=== PATIENT | male | born 1985 | race Caucasian/White ===

== ENCOUNTER 2017-11-23 15:00 | Emergency (ER) | payer OTHER ==
[2017-11-23 15:54] LABS: ADD MAN DIFF? NO
[2017-11-23] MEDS: ONDANSETRON PF 4 MG/2 ML VIAL. IV (15:56)
[2017-11-23] MEDS: IV NORMAL SALINE 1000ML BAG 1,000 ML IV (15:56)
[2017-11-23 15:57] LABS: BASO # 0.1 x10^3/uL (0.0-0.2); BASO % 1 % (0-3); EOS # 0.6 x10^3/uL (0.0-0.7); EOS % 11 % (0-3); HEMATOCRIT 43.6 % (39.0-53.0); HEMOGLOBIN 14.2 g/dL (13.0-17.5); LYMPH # 1.9 x10^3/uL (1.0-4.8); LYMPH % 34 % (24-48); MEAN CORPUSCULAR HEMOGLOBIN 28 pg (25-35); MEAN CORPUSCULAR HGB CONC 33 g/dL (31-37); MEAN CORPUSCULAR VOLUME 85 fL (79-100); MONO # 0.6 x10^3/uL (0.0-1.1); MONO % 12 % (0-9); NEUT # 2.3 x10^3uL (1.8-7.7); NEUT % 42 % (31-73); PLATELET COUNT 251 x10^3/uL (140-400); RED BLOOD COUNT 5.13 x10^6/uL (4.30-5.70); RED CELL DISTRIBUTION WIDTH 14.1 % (11.5-14.5); WHITE BLOOD COUNT 5.5 x10^3/uL (4.0-11.0)
[2017-11-23] MEDS: FAMOTIDINE 20 MG/2 ML VIAL IVP (15:57)
[2017-11-23] MEDS: fentaNYL PF VIAL 100 MCG/2 ML VIAL IV (15:57)
[2017-11-23 16:15] LABS: ANION GAP 11 (6-14); BLOOD UREA NITROGEN 10 mg/dL (8-26); BUN/CREATININE RATIO 9 (6-20); CALCIUM 8.6 mg/dL (8.5-10.1); CARBON DIOXIDE 24 mmol/L (21-32); CHLORIDE 107 mmol/L (98-107); CREATININE 1.1 mg/dL (0.7-1.3); GFR 76.6; GLUCOSE 102 mg/dL (70-99); POTASSIUM 4.1 mmol/L (3.5-5.1); SODIUM 142 mmol/L (136-145)
[2017-11-23 16:21] LABS: ALBUMIN 3.7 g/dL (3.4-5.0); ALBUMIN/GLOBULIN RATIO 1.1 (1.0-1.7); ALK PHOS 59 U/L (46-116); ALT (SGPT) 53 U/L (16-63); AST (SGOT) 23 U/L (15-37); LIPASE 72 U/L (73-393); TOTAL BILIRUBIN 0.3 mg/dL (0.2-1.0); TOTAL PROTEIN 7.1 g/dL (6.4-8.2)
[2017-11-23 16:50] LABS: BILIRUBIN,URINE SMALL (NEG); CLARITY,URINE CLEAR; COLOR,URINE YELLOW; GLUCOSE,URINE NEGATIVE (NEG); NITRITE,URINE NEGATIVE (NEG); PH,URINE 5.5; PROTEIN,URINE NEGATIVE (NEG-TRACE); UROBILINOGEN,URINE 0.2 mg/dL (0.2 mg/dL)
[2017-11-23 16:57] LABS: BACTERIA,URINE FEW /HPF (0-FEW); RBC,URINE 0 /HPF (0-2); SQUAMOUS EPITHELIAL CELL,UR FEW /LPF; WBC,URINE >40 /HPF (0-4)
[2017-11-23 18:07] LABS: INFLUENZA A PATIENT NEGATIVE (NEGATIVE); INFLUENZA B PATIENT NEGATIVE (NEGATIVE); OBC FLU VALID
== END 2017-11-23 18:31 | disposition home or self-care (01) ==
LOC: ER 15:00
DX: R10.11 Right upper quadrant pain (principal); R10.13 Epigastric pain
CPT/HCPCS: 36415; 71045; 76705; 80053; 81001; 83690; 85025; 87086; 87804; 87804-59; 93005; 96361; 96374; 96375; 99285-25; J2405; J3010; J7030; S0028

== ENCOUNTER 2022-03-16 09:15 | Emergency (ER) | payer OTHER ==
[~2022-03-16] VITALS: Ht 188 cm; Wt 89.5 kg
[2022-03-16 09:18] VITALS: BP 160/97
[2022-03-16] MEDS ORDERED: ONDANSETRON ODT 4 MG TAB.RAPDIS. PO ONE (09:30)
[2022-03-16] MEDS ORDERED: IBUP-1007 PO (09:31)
[2022-03-16] MEDS ORDERED: ONDA4TAB12 PO (09:31)
[2022-03-16] MEDS ORDERED: CLIN-94 PO (09:31)
--- NOTE | 2022-03-16 09:31 | PHYS DOC ---
Past Medical History Past Medical History: Bipolar, Other Additional Past Medical Histor: Manic, ADHD Past Surgical History: No Surgical History Smoking Status: Never Smoker Alcohol Use: Rarely Drug Use: Marijuana General Adult EDM: Chief Complaint: DENTAL PROBLEM HPI: HPI: Patient is a 36-year-old male who presents today via [facility] with dental pain. Patient states that he has had ongoing pain on his upper molar on the right side for approximately 1 month, he states that he has an appointment at the end of March with a dental clinic to have this tooth taken care of, but he said over the last 2 days his pain is become unbearable and he vomited once this morning. Patient states that he took acetaminophen for his pain this morning and that did not help. Patient denies fever or chills, shortness of breath, or chest pain. Review of Systems: Review of Systems: Constitutional: Denies fever or chills. [] Eyes: Denies change in visual acuity. [] HENT: Dental pain Respiratory: Denies cough or shortness of breath. [] Cardiovascular: Denies chest pain or edema. [] GI: Denies abdominal pain, nausea, vomiting, bloody stools or diarrhea. [] : Denies dysuria. [] Musculoskeletal: Denies back pain or joint pain. [] Integument: Denies rash. [] Neurologic: Denies headache, focal weakness or sensory changes. [] Endocrine: Denies polyuria or polydipsia. [] Lymphatic: Denies swollen glands. [] Psychiatric: Denies depression or anxiety. [] Heart Score: C/O Chest Pain: No Risk Factors: Risk Factors: DM, Current or recent (<one month) smoker, HTN, HLP, family history of CAD, obesity. Risk Scores: Score 0 - 3: 2.5% MACE over next 6 weeks - Discharge Home Score 4 - 6: 20.3% MACE over next 6 weeks - Admit for Clinical Observation Score 7 - 10: 72.7% MACE over next 6 weeks - Early Invasive Strategies Allergies: Allergies: Allergies Coded Allergies Type Severity Reaction Last Updated Verified No Known Drug Allergies 03/04/16 No Physical Exam: PE: Constitutional: Well developed, well nourished, no acute distress, non-toxic appearance. [] HENT: Right upper jaw back 2 molars have multiple caries noted in him, no swelling no drainage noted, area is reddened, back molar is chipped as is the molar in front of that 1. Eyes: PERRLA, EOMI, conjunctiva normal, no discharge. [] Neck: Normal range of motion, no tenderness, supple, no stridor. [] Cardiovascular:Heart rate regular rhythm, no murmur [] Lungs & Thorax: Bilateral breath sounds clear to auscultation [] Abdomen: Bowel sounds normal, soft, no tenderness, no masses, no pulsatile masses. [] Skin: Warm, dry, no erythema, no rash. [] Back: No tenderness, no CVA tenderness. [] Extremities: No tenderness, no cyanosis, no clubbing, ROM intact, no edema. [] Neurologic: Alert and oriented X 3, normal motor function, normal sensory function, no focal deficits noted. [] Psychologic: Affect normal, judgement normal, mood normal. [] Current Patient Data: Vital Signs: Vital Signs Date Time Temp Pulse Resp B/P (MAP) Pulse Ox O2 Delivery O2 Flow Rate FiO2 03/16/22 09:18 97.7 66 16 160/97 (118) 98 Room Air 97.7 EKG: EKG: [] Radiology/Procedures: Radiology/Procedures: [] Course & Med Decision Making: Course & Med Decision Making Pertinent Labs and Imaging studies reviewed. (See chart for details) Patient is no acute distress, well-appearing, patient will be given a dose of Zofran here in the emergency department, patient will be given an antibiotic to be taken twice daily as well as Motrin every 6 hours, patient is instructed to also get some bone wax so that that may be placed on the tooth that is causing his problems to help with insulating that route from any further pain. Patient is instructed to call his dentist on Friday to see if they have an earlier appointment. David Disclaimer: David Disclaimer: This electronic medical record was generated, in whole or in part, using a voice recognition dictation system. Departure Departure Impression: Primary Impression: Pain, dental Disposition: HOME / SELF CARE / HOMELESS Condition: STABLE Referrals: NON,STAFF (PCP) Patient Instructions: Dental Pain Additional Instructions: Clindamycin 300 mg 3 times daily for the next 10 days Motrin 600 mg take 1 tablet every 6 hours as needed for pain, take with food can cause stomach upset if taken on an empty stomach Use of bone wax to cover the exposed area of your tooth this can be found in the dental section at pharmacy Follow-up with your dentist on Friday to see if they have any earlier appointments for further evaluation and management of your tooth pain Keep your appointment at the end of March with your dentist if you are unable to get into earlier to have this tooth taken care of Follow-up with one of the local clinics below for further evaluation and management of this condition. [facility] [address] [place] [address] [facility] [address] [place] [address] [facility] [address] [facility] [place] [address] [facility] [address] [place] [address] [facility] [address] [place] [address] [facility] [address] [place] [address] [facility] [address] [place] [address] [facility] [address] [place] [address] [facility] [address] [place] [address] [facility] [address] [place] [address] Scripts Ondansetron (ONDANSETRON ODT) 4 Mg Tab.rapdis 1 TAB PO PRN Q6-8HRS, #16 TAB Prov: KRYSTAL JOHNSTON [employer] SALESPERSON 03/16/22 Ibuprofen (IBUPROFEN) 600 Mg Tablet 600 MG PO PRN Q6HRS PRN for INFLAMMATION, #60 TAB Prov: KRYSTAL JOHNSTON [employer] SALESPERSON 03/16/22 Clindamycin Hcl (CLINDAMYCIN HCL) 300 Mg Capsule 1 CAP PO TID, #30 CAP Prov: KRYSTAL JOHNSTON [employer] SALESPERSON 03/16/22 KRYSTAL JOHNSTON [employer] SALESPERSON Mar 16, 2022 09:31
== END 2022-03-16 09:37 | disposition home or self-care (01) ==
LOC: ER 09:15
DX: K08.89 Other specified disorders of teeth and supporting structures (principal); F31.9 Bipolar disorder, unspecified; F90.9 Attention-deficit hyperactivity disorder, unspecified type
CPT/HCPCS: 99283